=== PATIENT | male | born 1965 | race African-American/Black ===

== ENCOUNTER 2024-03-24 21:23 | Emergency (ER) | payer OTHER ==
[~2024-03-24] VITALS: Ht 170.2 cm; Wt 104.3 kg
[2024-03-24 21:27] VITALS: PULSE 85; RESP 18; TEMP 98.4; O2SAT 98
[2024-03-24] MEDS ORDERED: MEDROL4 M2 PO (21:40)
[2024-03-24] MEDS ORDERED: ORPHENADRINE C100 MG PO (21:40)
== END 2024-03-24 21:50 | disposition home or self-care (01) ==
LOC: ER 21:35
DX: M25.512 Pain in left shoulder (principal); S46.812A Strain of other muscles, fascia and tendons at shoulder and upper arm level, left arm, initial encounter; X50.3XXA Overexertion from repetitive movements, initial encounter; Y92.89 Other specified places as the place of occurrence of the external cause; I12.9 Hypertensive chronic kidney disease with stage 1 through stage 4 chronic kidney disease, or unspecified chronic kidney disease; E11.22 Type 2 diabetes mellitus with diabetic chronic kidney disease; N18.9 Chronic kidney disease, unspecified; E78.5 Hyperlipidemia, unspecified; G47.30 Sleep apnea, unspecified
CPT/HCPCS: 99282